=== PATIENT | female | born 1935 | race Caucasian/White ===

== ENCOUNTER → 2017-10-26 | Outpatient (CLI) | payer MEDICARE | END | disposition home or self-care (01) | LOC: LAB 10:43 | PROVIDERS: ATTEND Nurse Practitioner Primary Care | DX: Z11.1 Encounter for screening for respiratory tuberculosis (principal) | CPT/HCPCS: 36415; 86480 ==

== ENCOUNTER 2018-12-07 10:37 | Outpatient (CLI) | payer MEDICARE, MEDICAID | END 2018-12-07 23:59 | disposition home or self-care (01) | LOC: RAD 10:37 | PROVIDERS: ATTEND Nurse Practitioner Primary Care | DX: M19.011 Primary osteoarthritis, right shoulder (principal); M19.012 Primary osteoarthritis, left shoulder; M75.81 Other shoulder lesions, right shoulder; M75.82 Other shoulder lesions, left shoulder ==

== ENCOUNTER 2020-12-10 15:06 | Emergency (ER) | payer MEDICARE, MEDICAID ==
[~2020-12-10] VITALS: Ht 172.7 cm; Wt 110.0 kg
[2020-12-10] MEDS ORDERED: POTA20TA14 PO (15:44)
[2020-12-10] MEDS ORDERED: FURO-93 PO (15:44)
[2020-12-10] MEDS ORDERED: ATOR20TA37 PO (15:44)
[2020-12-10] MEDS ORDERED: DIVA500T2 PO (15:44)
[2020-12-10] MEDS ORDERED: OLAN15TA3 PO (15:44)
--- NOTE | 2020-12-10 15:44 | NUR ---
billet driller completed. Family/caregiver at bedside and is POA.
--- NOTE | 2020-12-10 15:59 | NUR ---
Medical student at bedside for exam.
[2020-12-10] MEDS ORDERED: ASPIRIN 81 MG TABLET CHEW PO ONE (16:30)
[2020-12-10] MEDS ORDERED: SODIUM CHLORIDE FLUSH 10ML SYR IVF ONE (16:30)
[2020-12-10] MEDS ORDERED: PLEASE ENTER ALLERGIES MC SCH (16:30)
[2020-12-10] MEDS ORDERED: ASPIRIN 81 MG TABLET CHEW ONE (16:48)
[2020-12-10 16:53] LABS: BASOPHILS % (AUTO) 1 % (0-1); EOSINOPHILS % (AUTO) 2 % (1-7); LYMPHOCYTES % (AUTO) 25 % (22-44); MEAN CORPUSCULAR HEMOGLOBIN 30.2 pg (27.0-34.8); MEAN CORPUSCULAR HGB CONC 33.3 g/dL (32.4-35.8); MONOCYTES % (AUTO) 12 % (2-9); NEUTROPHILS % (AUTO) 59 % (42-75); PLATELET COUNT 256 x10^3/uL (130-400); RED BLOOD COUNT 4.47 x10^6/uL (3.82-5.3); RED CELL DISTRIBUTION WIDTH 14.7 % (9.6-15.2)
--- NOTE | 2020-12-10 16:55 | NUR ---
Pt medicated with ASA as ordered. CXR result and CBC results reviewed. CMP still pending. Family and pt aware of wait for all results to be posted and then MD will be back to see pt and discuss findings/plan of care with everyone. Call light in reach, warm blanket offered but declined.
[2020-12-10 17:00] LABS: ALBUMIN 3.1 g/dL (3.4-5.0); ANION GAP 4 mmol/L (5-15); CALCIUM 8.4 mg/dL (8.5-10.1); CHLORIDE 104 mmol/L (98-107)
[2020-12-10 17:07] LABS: ALANINE AMINOTRANSFERASE 23 U/L (12-78); ALKALINE PHOSPHATASE 103 U/L (45-117); BILIRUBIN,TOTAL 0.2 mg/dL (0.2-1.0); CREATININE 0.94 mg/dL (0.55-1.02); TOTAL PROTEIN 6.8 g/dL (6.4-8.2); TROPONIN I < 0.015 ng/mL (0.000-0.045)
--- NOTE | 2020-12-10 17:38 | NUR ---
Chart marked for recheck by MD. Pt and family aware of place in process and awaiting MD for discussion of findings and plan of care.
--- NOTE | 2020-12-10 17:46 | NUR ---
Pt ambulatory to restroom with caregiver with moderately steady gait noted and minimal one- person assist being rendered. Pt then ambulated back to bed without incident. Continues to await MD discussion.
[2020-12-10 19:00] VITALS: BP 124/54
== END 2020-12-10 19:22 | disposition home or self-care (01) ==
LOC: ED 15:30
DX: R07.89 Other chest pain (principal); R94.31 Abnormal electrocardiogram [ECG] [EKG]; I10 Essential (primary) hypertension; E78.5 Hyperlipidemia, unspecified
CPT/HCPCS: 36415; 71045; 80053; 84484; 85025; 93005; 99285